=== PATIENT | male | born 1985 | race Caucasian/White ===

== ENCOUNTER 2019-07-30 08:44 | Outpatient (CLI) | payer OTHER ==
--- NOTE | 2019-07-30 10:39 | MRI ---
MRI LUMBAR SPINE NONCONTRAST: DATE: 07/30/2019 HISTORY: 33-year-old male with low back pain and left lumbar radiculopathy. COMPARISON: none FINDINGS: 5 lumbar-type vertebrae. Vertebral body heights are maintained. Alignment is normal. Bone marrow sign al is normal. T12-L1:Normal L1-2:Normal. Conus medullaris terminates at this level. L2-3:Normal L3-4:Normal L4-5:Moderate disc space narrowing. Disc desiccation. Large central and bilateral paracentral disc ex trusion. The left paracentral component is larger than the right. Inferior extension of extruded disc material reaches pedicle level of L5. Extruded disc fragment occupies approximately 75% of the c ross-sectional area of the thecal sac, and approximately 60% of cross-sectional area of the spinal canal, significantly displacing multiple cauda equina nerve roots, especially of the left L5 and left S1 nerve roots. Excluding the large extruded disc fragment, there spinal canal itself is not stenotic. No high-grade neural foraminal stenosis. L5-S1:Normal. IMPRESSION: Large disc extrusion at L4-5 compressing multiple nerve roots.
== END 2019-07-30 08:45 | disposition home or self-care (01) ==
LOC: TBSIIMAG 08:44
PROVIDERS: ATTEND Family Medicine Sports Medicine
DX: M51.16 Intervertebral disc disorders with radiculopathy, lumbar region (principal)
CPT/HCPCS: 72148